=== PATIENT | male | born 1965 | race Caucasian/White ===

== ENCOUNTER → 2018-02-23 10:52 | Outpatient (CLI) | payer OTHER, SELFPAY ==
--- NOTE | 2018-02-23 10:54 | ECHOCS_ITS ---
Reason For Study: Murmur Procedure This was a 2D Doppler, Color Flow transthoracic echocardiogram. The exam was of poor technical quality due to body habitus. The study was technically difficult. Contrast injection was performed. Exam performed in department. Left Ventricle Normal LV size. Left ventricular systolic function is normal. The estimated ejection fraction is 55 %. Transmitral doppler flow suggestive of impaired relaxation of left ventricle. No regional wall motion abnormalities noted. Right Ventricle Normal RV size. Normal systolic function. Atria Normal left atrium. Normal right atrium. No doppler evidence for ASD. Mitral Valve There is mild mitral annular calcification. Normal mitral valve. Trivial mitral valve insufficiency. Tricuspid Valve The tricuspid valve is not well visualized. Trivial tricuspid valve insufficiency. Unable to estimate RV systolic pressure/pulmonary artery pressure due to technically difficult study. Aortic Valve Based upon the 2D echocardiographic images obtained there appear to be findings potentially c/w a bicuspid aortic valve with associated moderate focal thickening and mild aortic valve stenosis. Pulmonic Valve The pulmonic valve is not well visualized. Great Vessels Moderately dilated aortic root. Moderate to severely dilated ascending thoracic aorta. Pericardium/Pleural No pericardial effusion. Medication 22 gauge I.V. with prn adaptor inserted into right arm. Diluted definity 3ml given slow IV push to enhance endocardial definition. MMode/2D Measurements & Calculations LVIDd: 4.9 cm IVSd: 1.1 cm LVOT diam: 2.8 cm LVIDs: 3.0 cm LVPWd: 1.1 cm LVOT area: 6.1 cm2 FS: 38.0 % Ao root diam: 4.6 cm LAV(MOD-sp2): 46.4 ml ACS: 1.3 cm Time Measurements MV dec time: 0.31 sec Doppler Measurements & Calculations MV E max shawn: 78.6 cm/sec Lat Peak E' Shawn: 9.6 cm/sec Med Peak E' Shawn: 8.3 cm/sec MV A max shawn: 82.9 cm/sec E/E' lat: 8.2 E/E' med: 9.4 MV E/A: 0.95 MV V2 max: 94.4 cm/sec MV P1/2t max shawn: 75.1 cm/sec Ao V2 max: 279.6 cm/sec MV max P.6 mmHg MV P1/2t: 116.4 msec Ao max P.3 mmHg MV V2 mean: 48.9 cm/sec MV dec slope: 189.0 cm/sec2 Ao V2 mean: 190.5 cm/sec MV mean P.1 mmHg MVA(P1/2t): 1.9 cm2 Ao mean P.8 mmHg MV V2 VTI: 25.8 cm Ao V2 VTI: 61.7 cm MVA(VTI): 4.2 cm2 BEVERLY(I,D): 1.8 cm2 BEVERLY(V,D): 1.7 cm2 LV V1 max: 75.7 cm/sec SV(LVOT): 108.3 ml PA V2 max: 60.7 cm/sec LV V1 max P.3 mmHg LV V1 mean P.4 mmHg LV V1 mean: 54.0 cm/sec LV V1 VTI: 17.7 cm Interpretation Summary The study was technically difficult. Contrast injection was performed. Left ventricular systolic function is normal. The estimated ejection fraction is 55 %. There is mild mitral annular calcification. Trivial mitral valve insufficiency. Trivial tricuspid valve insufficiency. Based upon the 2D echocardiographic images obtained there appear to be findings potentially c/w a bicuspid aortic valve with associated moderate focal thickening and mild aortic valve stenosis. Moderately dilated aortic root. Moderate to severely dilated ascending thoracic aorta. Unable to estimate RV systolic pressure/pulmonary artery pressure due to technically difficult study. Transmitral doppler flow suggestive of impaired relaxation of left ventricle Ordering Physician: Roberto Horn Referring Physician: Roberto Horn Performed By: Gavin Akhtar RCS
== END ==
LOC: CVS 10:53
PROVIDERS: Family Provider Internal Medicine; PCP Internal Medicine; Visit Provider Internal Medicine Cardiovascular Disease
DX: I35.8 Other nonrheumatic aortic valve disorders (principal)
CPT/HCPCS: 93306; Q9957; A4216; C8929

== ENCOUNTER → 2018-02-25 07:51 | Outpatient (CLI) | payer OTHER, SELFPAY ==
[2018-02-25 07:55] LABS: Bacteria 0 SEEN /hpf (None Seen); Mucous, Urine 0 SEEN /hpf (<or=2+); Squamous Epithelial Cells - UA 0 SEEN /hpf (0-5); White Blood Cells 0 SEEN /hpf (0-5)
[2018-02-25 08:24] LABS: Color, Urine Yellow (Yellow); Glucose, Dipstick Normal (Normal); Ketone-Dipstick Negative (Negative); Leukocyte Esterase-Dipstick Negative /ul (Negative); Nitrite-Dipstick Negative (Negative); Occult Blood-Urine 25 /ul (Negative); Protein-Dipstick 15 mg/dl (Negative); Urine Bilirubin Dipstick Negative (Negative); Urine Clarity Clear (Clear); Urine Urobilinogen Normal (Normal)
[2018-02-25 08:28] LABS: Absolute Lymphocyte Count 2.71 X10^3/ul (0.83-4.51); Absolute Neutrophil Count 4.6 X10^3/uL (2.0-7.7); Basophil# 0.02 X10^3/uL; Basophil% 0.2 % (0-1); Eosinophil# 0.14 X10^3/uL; Eosinophils% 1.7 % (0-5); Hematocrit 47.5 % (40-54); Hemoglobin 16.2 g/dl (13.0-16.5); Lymphocyte # 2.71 X10^3/ul (4.0); Lymphocyte % 32.3 % (19-41); Mean Corp Hgb Conc 34.1 g/gl (32-36); Mean Corpuscular Hgb 29.8 pg (27.0-32.0); Mean Corpuscular Volume 87.5 fL (80-94); Mean Platelet Vol. 10.8 fl (6.2-12.0); Monocyte% 9.5 % (0-10); Neutrophil # 4.59 X10^3/uL (2.7-7.7); Neutrophil % 54.9 % (47-70); Platelet Count 198 K/mm3 (150-450); RBC Distribution Width CV 13.3 % (11.6-14.6); RBC Distribution Width SD 42.5 fl (35.1-43.9); Red Blood Count 5.43 M/mm3 (4.6-6.2); White Blood Count 8.4 K/mm3 (4.4-11.0)
[2018-02-25 08:35] LABS: POSITIVE COUNT NO; POSITIVE DIFFERENTIAL NO; POSITIVE MORPHOLOGY NO
[2018-02-25 08:45] LABS: Red Blood Cells-Urine 0-5 SEEN /hpf (0-5)
[2018-02-25 08:47] LABS: Microalbumin,Random Urine 21.4 mg/L (NO RANGE EST.); Microalbumin:Creatinine Ratio 9.3 mg/g CRE (<30 mg/g CRE)
[2018-02-25 08:59] LABS: AST(SGOT) 27 U/L (15-37); Alanine Aminotransfer ALT/SGPT 45 U/L (16-61); Albumin, Serum 3.5 g/dL (3.2-5.0); Alkaline Phosphatase 125 U/L (45-117); Anion Gap 6 (5-15); BUN 16 mg/dL (7-18); BUN/Creat Ratio 15.1 RATIO (10-20); Calcium,Total 8.4 mg/dL (8.5-10.1); Chloride 108 mmol/L (98-107); Cholesterol 141 mg/dL (200); Creatinine, Serum 1.06 mg/dL (0.70-1.30); EST Glomerular Filtration Rate 77 mL/min (>60); Est Glom Filt Rate - Afr Amer 94 mL/min (>60); Globulin 3.5 g/dL (2.2-4.2); Glucose 96 mg/dL (74-106); High Density Lipoprotein 50 mg/dL; PSA,Total - Annual Screen 1.17 ng/mL (0.00-4.00); Potassium 3.8 mmol/L (3.5-5.1); Sodium Level 141 mmol/L (136-145); Triglycerides 76 mg/dL; Very Low Density Lipoprotein 15 mg/dL (5-40)
[2018-02-27 12:06] LABS: CHOLESTEROL TOTAL 152 mg/dL (100-199); HDL-C 49 mg/dL (>39); HDL-P TOTAL 34.3 umol/L (>=30.5); SMALL LDL-P 120 nmol/L (<=527); TRIGLYCERIDES 80 mg/dL (0-149)
[2018-03-01 10:00] LABS: LDL-C 87 mg/dL (0-99); LDL-P 925 nmol/L (<1000); LP-IR SCORE ** 55 (<=45)
== END ==
PROVIDERS: Family Provider Internal Medicine; PCP Internal Medicine; Visit Provider Internal Medicine
DX: I10 Essential (primary) hypertension (principal); Z12.5 Encounter for screening for malignant neoplasm of prostate; Z13.220 Encounter for screening for lipoid disorders
CPT/HCPCS: 36415; 80053; 80061; 81001; 82043; 82570; 83704; 84153; 85025; G0103

== ENCOUNTER → 2018-03-31 13:26 | Outpatient (CLI) | payer OTHER, SELFPAY ==
--- NOTE | 2018-03-31 13:55 | CT_ITS ---
STUDY: CTA CHEST REASON FOR EXAM: Male, 53 years old. He reported for dilation RADIATION DOSAGE (If Supplied By Facility): CTDIvol = ( 21.66 ) mGy, DLP = ( 815.72 ) mGycm TECHNIQUE: The examination was performed with the intravenous administration of 100 ml of Isovue 370 contrast material. Post-processing of the angiographic images was performed, with multiplanar reformation and 3D reconstruction. Individualized dose optimization techniques were used for this CT. COMPARISON: None. FINDINGS: There is a low-density nodule of the left thyroid lobe measuring 2.1 cm. Normal enhancement of the main pulmonary artery and right and left pulmonary arteries. Normal enhancement of the bilateral peripheral pulmonary arteries. There is no demonstrated pulmonary embolism. There is aneurysmal enlargement of the ascending thoracic aorta with true axial diameter (measured on oblique reconstruction images) measuring 5.8 x 5.8 cm. There is mild dilation at the origin of the right brachiocephalic artery measuring 2.3 x 1.7 cm (AP by transverse). The left common carotid artery and left subclavian artery are normal in caliber. There is no demonstrated aortic dissection. The heart size is normal. There are calcifications of the aortic valve. There are visualized mediastinal lymph nodes, which are within normal size limits, and with normal morphology. Normal hilar regions. Normal visualized trachea and bronchi. The lungs are well expanded. Scattered fibrotic bands involving the right middle lobe, lingula right more than left lower lobes. No pulmonary nodule or mass identified. Normal pleura. Normal chest wall structures. Normal osseous structures. Capsular scarring of the right posterolateral hepatic lobe. There is a low-density lesion with peripheral nodular enhancement, likely representing hemangioma. CT/CTA Chest W/WO Contrast IMPRESSION: 1. Ascending thoracic aortic aneurysm measuring up to 5.8 cm in axial diameter. Mild ectasia of the right brachiocephalic artery origin. No thoracic aortic dissection. 2. Aortic valve calcifications. 3. Scattered parenchymal fibrotic bands. 4. Probable hemangioma of the liver. Electronically Signed: Scot Harvey MD at 19:40 EDT , Service support ,
== END ==
PROVIDERS: Family Provider Internal Medicine; PCP Internal Medicine; Visit Provider Internal Medicine Cardiovascular Disease
DX: I71.2 Thoracic aortic aneurysm, without rupture (principal)
CPT/HCPCS: 71275; Q9967

== ENCOUNTER → 2018-04-12 11:52 | Outpatient (CLI) | payer OTHER, SELFPAY ==
[2018-04-12 12:59] LABS: Hematocrit 46.7 % (40-54); Mean Corp Hgb Conc 34.3 g/gl (32-36); Mean Corpuscular Hgb 30.2 pg (27.0-32.0); Mean Corpuscular Volume 88.3 fL (80-94); Mean Platelet Vol. 10.7 fl (6.2-12.0); Platelet Count 199 K/mm3 (150-450); RBC Distribution Width CV 13.4 % (11.6-14.6); RBC Distribution Width SD 43.7 fl (35.1-43.9); Red Blood Count 5.29 M/mm3 (4.6-6.2); White Blood Count 7.9 K/mm3 (4.4-11.0)
[2018-04-12 13:04] LABS: Scan Indicated on CBC? Y/N NO
[2018-04-12 13:24] LABS: BUN 17 mg/dL (7-18); BUN/Creat Ratio 17.4 RATIO (10-20); Calcium,Total 8.8 mg/dL (8.5-10.1); Chloride 109 mmol/L (98-107); Creatinine, Serum 0.98 mg/dL (0.70-1.30); EST Glomerular Filtration Rate 85 mL/min (>60); Est Glom Filt Rate - Afr Amer 103 mL/min (>60); Glucose 97 mg/dL (74-106); Potassium 4.2 mmol/L (3.5-5.1); Sodium Level 141 mmol/L (136-145)
[2018-04-12 13:25] LABS: Anion Gap 6 (5-15)
[2018-04-12 14:07] LABS: International Normalized Ratio 1.2; Partial Thromboplast Time 29.1 Seconds (24.1-36.2); Prothrombin Time (Protime)PT. 15.6 SECONDS (11.7-14.9)
== END ==
PROVIDERS: Family Provider Internal Medicine; PCP Internal Medicine; Visit Provider Internal Medicine Cardiovascular Disease
DX: I71.2 Thoracic aortic aneurysm, without rupture (principal); R01.1 Cardiac murmur, unspecified; I10 Essential (primary) hypertension
CPT/HCPCS: 36415; 80048; 85027; 85610; 85730

== ENCOUNTER 2018-04-13 08:10 | Day surgery (SDC) | payer OTHER, SELFPAY ==
[2018-04-12 11:12] VITALS: BMI 34.5
== END 2018-04-13 14:45 | disposition home or self-care (01) ==
LOC: CLSP 08:10
PROVIDERS: Family Provider Internal Medicine; PCP Internal Medicine; Visit Provider Internal Medicine Cardiovascular Disease
DX: I71.2 Thoracic aortic aneurysm, without rupture (principal); Q23.1 Congenital insufficiency of aortic valve; I10 Essential (primary) hypertension; K44.9 Diaphragmatic hernia without obstruction or gangrene; F17.200 Nicotine dependence, unspecified, uncomplicated; Z79.82 Long term (current) use of aspirin; Z79.899 Other long term (current) drug therapy
CPT/HCPCS: 93454; 93567; 99152; 99153; J7040; C1769; C1894; Q9967

== ENCOUNTER → 2018-06-14 13:29 | Outpatient (CLI) | payer OTHER, SELFPAY ==
[2018-06-14 14:09] LABS: International Normalized Ratio 1.5; Prothrombin Time (Protime)PT. 17.8 SECONDS (11.7-14.9)
== END ==
PROVIDERS: Family Provider Internal Medicine; PCP Internal Medicine; Referring Provider Internal Medicine Cardiovascular Disease; Visit Provider Internal Medicine Cardiovascular Disease
DX: I48.91 Unspecified atrial fibrillation (principal); I97.89 Other postprocedural complications and disorders of the circulatory system, not elsewhere classified; Z79.01 Long term (current) use of anticoagulants
CPT/HCPCS: 36415; 85610

== ENCOUNTER → 2018-06-21 12:11 | Outpatient (CLI) | payer OTHER, SELFPAY ==
[2018-06-21 13:09] LABS: International Normalized Ratio 1.5; Prothrombin Time (Protime)PT. 17.8 SECONDS (11.7-14.9)
== END ==
PROVIDERS: Family Provider Internal Medicine; PCP Internal Medicine; Referring Provider Internal Medicine Cardiovascular Disease; Visit Provider Internal Medicine Cardiovascular Disease
DX: I48.91 Unspecified atrial fibrillation (principal); Q23.1 Congenital insufficiency of aortic valve; R01.1 Cardiac murmur, unspecified; I71.2 Thoracic aortic aneurysm, without rupture; I10 Essential (primary) hypertension; I97.89 Other postprocedural complications and disorders of the circulatory system, not elsewhere classified; Z79.01 Long term (current) use of anticoagulants
CPT/HCPCS: 36415; 85610

== ENCOUNTER → 2018-06-28 13:03 | Outpatient (CLI) | payer OTHER, SELFPAY ==
--- NOTE | 2018-06-28 13:18 | RAD_ITS ---
STUDY: X-RAY CHEST REASON FOR EXAM: Male, 53 years old. Pleural effusion. TECHNIQUE: Frontal and lateral views of the chest. COMPARISON: CT scan 03/31/2018. FINDINGS: The lungs are clear and expanded. There is no demonstrated pleural abnormality. Sternal cerclage wires are present from a prior sternotomy. A prosthetic aortic valve is seen. Normal mediastinum and liya. Normal visualized pulmonary arteries. Normal visualized aortic arch and descending thoracic aorta. Normal visualized thoracic spine. Normal visualized ribs, clavicles, and shoulders. There is no demonstrated abnormality of the visualized soft tissue structures of the upper abdomen. RAD/Chest PA and Lateral IMPRESSION: No acute chest disease. Electronically Signed: Wisam Murrell MD at 23:56 EST , Service support ,
[2018-06-28 13:45] LABS: International Normalized Ratio 1.4; Prothrombin Time (Protime)PT. 16.9 SECONDS (11.7-14.9)
== END ==
PROVIDERS: Family Provider Internal Medicine; PCP Internal Medicine; Referring Provider Internal Medicine Cardiovascular Disease; Visit Provider Internal Medicine Cardiovascular Disease
DX: J90 Pleural effusion, not elsewhere classified (principal); Q23.1 Congenital insufficiency of aortic valve; I10 Essential (primary) hypertension; I48.91 Unspecified atrial fibrillation; I71.2 Thoracic aortic aneurysm, without rupture; R01.1 Cardiac murmur, unspecified; I97.89 Other postprocedural complications and disorders of the circulatory system, not elsewhere classified; Z79.01 Long term (current) use of anticoagulants
CPT/HCPCS: 36415; 71046; 85610

== ENCOUNTER → 2018-07-06 11:43 | Outpatient (CLI) | payer OTHER, SELFPAY ==
--- NOTE | 2018-07-06 11:49 | ECHOCS_ITS ---
Reason For Study: PERICARDIAL EFFUSION Procedure This was a 2D Doppler, Color Flow transthoracic echocardiogram. The study was technically difficult. Contrast injection was performed. Exam performed in department. Left Ventricle Normal LV size. Left ventricular systolic function is normal. The estimated ejection fraction is 60 %. Transmitral doppler flow suggestive of impaired relaxation of left ventricle. No regional wall motion abnormalities noted. Right Ventricle Normal RV size. Normal systolic function. Atria Normal left atrium. Normal right atrium. No doppler evidence for ASD. Mitral Valve There is mild mitral annular calcification. Normal mitral valve. Trivial mitral valve insufficiency. Tricuspid Valve Normal tricuspid valve. Trivial tricuspid valve insufficiency. Unable to estimate RV systolic pressure/pulmonary artery pressure due to technically difficult study. Aortic Valve Stable appearing bioprosthetic aortic valve apparatus. Pulmonic Valve The pulmonic valve is not well visualized. Trivial pulmonic valve insufficiency. Great Vessels Aortic root repair. Pericardium/Pleural Small to moderate pericardial effusion. There are no echocardiographic indications of cardiac tamponade. Medication 22 gauge I.V. with prn adaptor inserted into right arm. Diluted definity 4ml given slow IV push to enhance endocardial definition. MMode/2D Measurements & Calculations RVDd: 4.1 cm LVOT diam: 2.3 cm Ao root diam: 3.7 cm LVOT area: 4.3 cm2 LAV(MOD-bp): 52.2 ml LVAd ap4: 37.9 cm2 SV(MOD-sp4): 70.4 ml LAV(MOD-bp) Indexed: 21.1 ml/m2 EDV(MOD-sp4): 131.4 ml LAV(MOD-sp2): 49.9 ml EDV(sp4-el): 139.9 ml LAV(MOD-sp4): 51.6 ml LVAs ap4: 23.2 cm2 ESV(MOD-sp4): 61.0 ml ESV(sp4-el): 63.5 ml EF(MOD-sp4): 53.6 % EF(sp4-el): 54.6 % SV(sp4-el): 76.4 ml LA A4 area: 19.7 cm2 RA A4 area: 16.3 cm2 Time Measurements MV dec time: 0.24 sec Doppler Measurements & Calculations MV E max shawn: 77.5 cm/sec Lat Peak E' Shawn: 9.8 cm/sec Med Peak E' Shawn: 5.5 cm/sec MV A max shawn: 76.7 cm/sec E/E' lat: 7.9 E/E' med: 14.1 MV E/A: 1.0 Ao V2 max: 233.5 cm/sec LV V1 max: 115.9 cm/sec SV(LVOT): 103.6 ml Ao max P.8 mmHg LV V1 max P.4 mmHg Ao V2 mean: 170.0 cm/sec LV V1 mean P.9 mmHg Ao mean P.6 mmHg LV V1 mean: 80.3 cm/sec Ao V2 VTI: 44.6 cm LV V1 VTI: 24.3 cm BEVERLY(I,D): 2.3 cm2 BEVERLY(V,D): 2.1 cm2 PA V2 max: 95.2 cm/sec Interpretation Summary The study was technically difficult. Contrast injection was performed. Left ventricular systolic function is normal. The estimated ejection fraction is 60 %. There is mild mitral annular calcification. Trivial mitral valve insufficiency. Trivial tricuspid valve insufficiency. Stable appearing bioprosthetic aortic valve apparatus. Trivial pulmonic valve insufficiency. Aortic root repair. Small to moderate pericardial effusion. There are no echocardiographic indications of cardiac tamponade. Unable to estimate RV systolic pressure/pulmonary artery pressure due to technically difficult study. Transmitral doppler flow suggestive of impaired relaxation of left ventricle Ordering Physician: Roberto Horn Referring Physician: LEANDRA CHAUHAN Performed By: Carmela Pierce, RDCS, RVT
--- NOTE | 2018-07-06 14:41 | STRESSREP ---
Stress Test Report Date: 07/06/2018 Procedure: Exercise tolerance test Indications: Status post AVR, status post aortic root repair, postoperative atrial fibrillation, pre-cardiac rehabilitation evaluation Consent: Per the patient Procedure: The patient exercised on a Panchito protocol for 5 minutes completing Stage I and 2 minutes of Stage II achieving a peak heart rate of 127 bpm (76 % predicted maximal heart rate) with a peak blood pressure 140/80 mmHg and a peak MET capacity of approximately 7 MET's. The baseline ECG demonstrated normal sinus rhythm. The peak exercise ECG demonstrated somatic/motion artifact with no obvious ECG changes at the heart rate achieved. There were occasional PVCs during recovery. The functional capacity was considered average. The patient had no complaint of chest discomfort during exercise or recovery. The examination was discontinued secondary to dyspnea and fatigue. Impression: 1. Technically inadequate (percent predicted maximal heart rate less than 85%) exercise tolerance test 2. Peak exercise ECG with with somatic/motion artifact with no obvious ECG changes at the heart rate achieved 3. There were occasional PVCs during recovery This note was generated with [employer] software. It may contain incorrect words, spelling, and punctuation that were not noted in checking the note before signing.
--- NOTE | 2018-07-06 14:44 | STRESSREP_ITS ---
Stress Test Report Date: 07/06/2018 Procedure: Exercise tolerance test Indications: Status post AVR, status post aortic root repair, postoperative atrial fibrillation, pre-cardiac rehabilitation evaluation Consent: Per the patient Procedure: The patient exercised on a Panchito protocol for 5 minutes completing Stage I and 2 minutes of Stage II achieving a peak heart rate of 127 bpm (76 % predicted maximal heart rate) with a peak blood pressure 140/80 mmHg and a peak MET capacity of approximately 7 MET's. The baseline ECG demonstrated normal sinus rhythm. The peak exercise ECG demonstrated somatic/motion artifact with no obvious ECG changes at the heart rate achieved. There were occasional PVCs during recovery. The functional capacity was considered average. The patient had no complaint of chest discomfort during exercise or recovery. The examination was discontinued secondary to dyspnea and fatigue. Impression: 1. Technically inadequate (percent predicted maximal heart rate less than 85%) exercise tolerance test 2. Peak exercise ECG with with somatic/motion artifact with no obvious ECG changes at the heart rate achieved 3. There were occasional PVCs during recovery This note was generated with babbelation software. It may contain incorrect words, spelling, and punctuation that were not noted in checking the note before signing.
== END ==
PROVIDERS: Family Provider Internal Medicine; PCP Internal Medicine; Referring Provider Internal Medicine Cardiovascular Disease; Visit Provider Internal Medicine Cardiovascular Disease
DX: J90 Pleural effusion, not elsewhere classified (principal); I31.3 Pericardial effusion (noninflammatory); Z95.2 Presence of prosthetic heart valve
CPT/HCPCS: 93017; 93306; Q9957; A4216; C8929

== ENCOUNTER 2018-07-19 08:25 | Outpatient (RCR) | payer OTHER, SELFPAY ==
[2018-07-05 17:18] LABS: International Normalized Ratio 1.3; Prothrombin Time (Protime)PT. 16.2 SECONDS (11.7-14.9)
[2018-07-12 09:03] LABS: International Normalized Ratio 1.4
[2018-07-19 09:28] LABS: International Normalized Ratio 1.6; Prothrombin Time (Protime)PT. 18.9 SECONDS (11.7-14.9)
== END 2018-07-23 07:59 | disposition home or self-care (01) ==
LOC: LAB 08:25
PROVIDERS: Family Provider Internal Medicine; PCP Internal Medicine; Referring Provider Internal Medicine Cardiovascular Disease; Visit Provider Internal Medicine Cardiovascular Disease
DX: I48.91 Unspecified atrial fibrillation (principal); I97.89 Other postprocedural complications and disorders of the circulatory system, not elsewhere classified; Z79.01 Long term (current) use of anticoagulants; Z95.3 Presence of xenogenic heart valve
CPT/HCPCS: 36415; 85610

== ENCOUNTER → 2018-07-30 14:59 | Outpatient (CLI) | payer OTHER, SELFPAY ==
--- NOTE | 2018-07-30 15:01 | ECHOL_ITS ---
Reason For Study: Pericardial Effusion Procedure This was a limited 2D transthoracic echocardiogram. The study was technically difficult. Limited views were obtained. Exam performed in department. Left Ventricle Left ventricular systolic function is normal. The estimated ejection fraction is 60 %. Right Ventricle Normal systolic function. Pericardium/Pleural No pericardial effusion. Interpretation Summary The study was technically difficult. Limited views were obtained. Left ventricular systolic function is normal. The estimated ejection fraction is 60 %. No pericardial effusion. Ordering Physician: Roberto Horn Referring Physician: Roberto Horn Performed By: Gavin Akhtar RCS
== END ==
PROVIDERS: Family Provider Internal Medicine; PCP Internal Medicine; Referring Provider Internal Medicine Cardiovascular Disease; Visit Provider Internal Medicine Cardiovascular Disease
DX: I31.3 Pericardial effusion (noninflammatory) (principal)
CPT/HCPCS: 93308

== ENCOUNTER 2018-08-23 07:53 | Outpatient (RCR) | payer OTHER, SELFPAY ==
[2018-07-26 09:25] LABS: International Normalized Ratio 1.8; Prothrombin Time (Protime)PT. 20.7 SECONDS (11.7-14.9)
[2018-08-02 10:42] LABS: International Normalized Ratio 1.6; Prothrombin Time (Protime)PT. 19.4 SECONDS (11.7-14.9)
[2018-08-09 09:09] LABS: International Normalized Ratio 1.8; Prothrombin Time (Protime)PT. 21.1 SECONDS (11.7-14.9)
[2018-08-23 10:35] LABS: International Normalized Ratio 2.1; Prothrombin Time (Protime)PT. 23.2 SECONDS (11.7-14.9)
== END 2018-08-23 08:53 | disposition home or self-care (01) ==
LOC: LAB 07:53
PROVIDERS: Family Provider Internal Medicine; PCP Internal Medicine; Referring Provider Internal Medicine Cardiovascular Disease; Visit Provider Internal Medicine Cardiovascular Disease
DX: I48.91 Unspecified atrial fibrillation (principal); I97.89 Other postprocedural complications and disorders of the circulatory system, not elsewhere classified; Z79.01 Long term (current) use of anticoagulants; Z95.3 Presence of xenogenic heart valve
CPT/HCPCS: 36415; 85610

== ENCOUNTER 2018-09-20 08:17 | Outpatient (RCR) | payer OTHER, SELFPAY ==
[2018-06-24 14:37] VITALS: BMI 32.8
[2018-09-20 09:44] LABS: International Normalized Ratio 2.1; Prothrombin Time (Protime)PT. 23.8 SECONDS (11.7-14.9)
== END 2018-09-20 09:18 | disposition home or self-care (01) ==
LOC: LAB 08:17
PROVIDERS: Family Provider Internal Medicine; PCP Internal Medicine; Referring Provider Internal Medicine Cardiovascular Disease; Visit Provider Internal Medicine Cardiovascular Disease
DX: I48.91 Unspecified atrial fibrillation (principal); I97.89 Other postprocedural complications and disorders of the circulatory system, not elsewhere classified; Z79.01 Long term (current) use of anticoagulants; Z95.3 Presence of xenogenic heart valve
CPT/HCPCS: 36415; 85610

== ENCOUNTER → 2020-08-28 10:54 | Outpatient (CLI) | payer OTHER, SELFPAY ==
[2020-03-16 08:54] VITALS: BMI 33.7
--- NOTE | 2020-08-28 10:55 | ECHOD_ITS ---
Reason For Study: VALVE REPL Procedure This was a 2D Doppler, Color Flow transthoracic echocardiogram. The exam was of adequate technical quality. Exam performed in department. Left Ventricle Normal LV size. Left ventricular systolic function is normal. The estimated ejection fraction is 60 %. No evidence for diastolic dysfunction. No regional wall motion abnormalities noted. Right Ventricle Normal RV size. Normal systolic function. Atria The left atrium is mildly enlarged. Normal right atrium. No doppler evidence for ASD. Mitral Valve There is mild mitral annular calcification. Extension of the mitral annular calcification onto the base of the posterior mitral valve leaflet. Trivial mitral valve insufficiency. Tricuspid Valve Normal tricuspid valve. Trivial tricuspid valve insufficiency. Aortic Valve Mild to moderate aortic stenosis. Stable appearing bioprosthetic aortic valve apparatus. Pulmonic Valve The pulmonic valve is not well visualized. Great Vessels Normal sized aortic root. Pericardium/Pleural No pericardial effusion. MMode/2D Measurements & Calculations LVIDd: 4.5 cm IVSd: 1.1 cm LVOT diam: 2.0 cm LVIDs: 3.2 cm LVPWd: 1.1 cm LVOT area: 3.2 cm2 RVDd: 3.8 cm FS: 28.8 % Ao root diam: 3.2 cm LAV(MOD-bp): 51.8 ml LA A4 area: 19.4 cm2 LAV(MOD-bp) Indexed: 21.0 ml/m2 LAV(MOD-sp2): 43.6 ml LAV(MOD-sp4): 48.0 ml LA dimension(2D): 4.2 cm RA A4 area: 15.1 cm2 Time Measurements MV dec time: 0.29 sec Doppler Measurements & Calculations MV E max shawn: 82.4 cm/sec Lat Peak E' Shawn: 10.1 cm/sec Med Peak E' Shawn: 8.0 cm/sec MV A max shawn: 79.3 cm/sec E/E' lat: 8.2 E/E' med: 10.3 MV E/A: 1.0 Ao V2 max: 298.3 cm/sec LV V1 max: 111.2 cm/sec SV(LVOT): 82.5 ml Ao max P.6 mmHg LV V1 max P.0 mmHg Ao V2 mean: 218.9 cm/sec LV V1 mean P.0 mmHg Ao mean P.8 mmHg LV V1 mean: 81.6 cm/sec Ao V2 VTI: 68.4 cm LV V1 VTI: 26.1 cm BEVERLY(I,D): 1.2 cm2 BEVERLY(V,D): 1.2 cm2 PA V2 max: 85.5 cm/sec Interpretation Summary Left ventricular systolic function is normal. The estimated ejection fraction is 60 %. The left atrium is mildly enlarged. There is mild mitral annular calcification. Extension of the mitral annular calcification onto the base of the posterior mitral valve leaflet. Trivial mitral valve insufficiency. Trivial tricuspid valve insufficiency. Stable appearing bioprosthetic aortic valve apparatus. Mild to moderate aortic stenosis. No evidence for diastolic dysfunction. Ordering Physician: Roberto Horn Referring Physician: LEANDRA CHAUHAN Performed By: Carmela Pierce, MILLI, RVT
== END ==
PROVIDERS: PCP Internal Medicine; Referring Provider Internal Medicine Cardiovascular Disease; Visit Provider Internal Medicine Cardiovascular Disease
DX: I10 Essential (primary) hypertension (principal); I48.91 Unspecified atrial fibrillation; I97.89 Other postprocedural complications and disorders of the circulatory system, not elsewhere classified; Z86.79 Personal history of other diseases of the circulatory system; Z95.3 Presence of xenogenic heart valve; Z98.890 Other specified postprocedural states
CPT/HCPCS: 93306

== ENCOUNTER → 2025-06-14 | Outpatient (CLI) | payer OTHER, SELFPAY ==
[2025-06-14 09:23] LABS: Hematocrit 48.4 % (40-54); Hemoglobin 15.8 g/dL (13.0-16.5); Immature Granulocytes Count 0.050 X10^3/uL (0.0-0.0); Mean Corp Hgb Conc 32.6 g/dL (32-36); Mean Corpuscular Volume 89.5 fL (80-94); Mean Platelet Vol. 10.4 fl (6.2-12.0); NRBC Flagged by Analyzer 0 % (0-5); Platelet Count 179 K/mm3 (150-450); RBC Distribution Width CV 13.5 % (11.6-14.6); RBC Distribution Width SD 43.8 fl (35.1-43.9); Red Blood Count 5.41 M/mm3 (4.6-6.2); White Blood Count 8.3 K/mm3 (4.4-11.0)
[2025-06-14 10:24] LABS: AST(SGOT) 32 U/L (<=37); Alanine Aminotransfer ALT/SGPT 46 U/L (<=46); Albumin, Serum 3.9 g/dL (3.4-4.8); Alkaline Phosphatase 141 U/L (40-129); Anion Gap 10 (5-15); BUN 16 mg/dL (4-19); BUN/Creat Ratio 16.1 RATIO (10-20); Calcium,Total 9.0 mg/dL (7.6-11.0); Carbon Dioxide 24.7 mmol/L (21.0-32.0); Chloride 105 mmol/L (98-108); Globulin 2.6 g/dL (2.2-4.2); Glucose 116 mg/dL (70-99); Potassium 4.6 mmol/L (3.3-5.1); Pro- Brain NATRIURETIC PEPTIDE 127 pg/mL (<=900)
== END | disposition home or self-care (01) ==
LOC: LAB 08:54
PROVIDERS: PCP Internal Medicine; Referring Provider Nurse Practitioner Family; Visit Provider Nurse Practitioner Family
DX: R06.09 Other forms of dyspnea (principal); I10 Essential (primary) hypertension
CPT/HCPCS: 36415; 80053; 83880; 85025

== ENCOUNTER 2025-06-27 10:33 | Emergency (ER) | payer OTHER, SELFPAY ==
[2025-06-27 10:38] VITALS: BP 120/94; PULSE 160; RESP 22; TEMP 36.6; O2SAT 96; BMI 36.2
--- NOTE | 2025-06-27 10:53 | EKG12_ITS ---
Test Reason : AFIB
--- NOTE | 2025-06-27 10:54 | RAD_ITS ---
PROCEDURE: RAD/Chest PA and Lateral
--- NOTE | 2025-06-27 10:56 | ED.VIS.CHEST ---
HPI History of Present Illness Chief Complaint: Palpitations Informant: patient Narrative Narrative: Patient is a 60-year-old male with history of aortic valve replacement bioprosthetic valve (2018) as well as repair of ascending aortic aneurysm. He did have postoperative atrial fibrillation but is managed on metoprolol alone. He is presenting today with palpitations and arrhythmia for 7.4-second run of V. tach versus A-fib with aberrancy at a rate of 194. He tells me that over the past 2 weeks he is active and feeling very good since following up with cardiology (on 06/14/2025). At that time he did have an outpatient echocardiogram ordered but is not sure when the date is. He denies any recent dyspnea on exertion states he was carrying 5 gallon barrels yesterday and feeling well. Notes that he has been compliant with his metoprolol. He denies any chest pain. Denies any recent dyspnea on exertion or cough. Denies any leg swelling. Denies any weight change. No other complaints at this time. [facility] Medical History Essential hypertension Nonrheumatic aortic (valve) stenosis Pericardial effusion roasterman (current) use of anticoagulants Postoperative atrial fibrillation Bicuspid aortic valve Cardiac murmur Ascending aortic aneurysm Heartburn Hiatal hernia Home Medications ?Medication ?Instructions ?Recorded ?Last Taken ?Type aspirin 81 mg tablet,delayed 81 mg PO QDAY HEART 10/13/18 06/26/25 History release vitamin B complex (B 1 tab PO DAILY SUPPLEMENT 04/18/19 06/26/25 History Complex-Vitamin B12 tablet) apixaban 5 mg tablet (Eliquis) 5 mg PO BID #60 tabs 06/27/25 Unknown Rx ascorbic acid (vitamin C) 1,000 mg 1 g PO DAILY SUPPLEMENT 06/27/25 06/26/25 History capsule metoprolol succinate 100 mg 50 mg PO DAILY HEART 06/27/25 06/26/25 History tablet,extended release 24 hr metoprolol succinate 50 mg 50 mg PO BID #28 tabs 06/27/25 Unknown Rx tablet,extended release 24 hr omeprazole 20 mg capsule,delayed 20 mg PO DAILY GERD 06/27/25 06/26/25 History release Allergy/AdvReac Type Severity Reaction Status Date / Time No Known Allergies Allergy Verified 06/27/25 10:38 Family History Father Hypertension CAD (coronary artery disease) Hx of CABG Mother Diabetes Hypertension CVA (cerebral vascular accident) Brother Heart disease Myocardial infarction, Onset Age: 60 Sister Hypertension Surgical History History of aortic valve replacement with bioprosthetic valve (~05/31/18) S/P ascending aortic aneurysm repair (~05/31/18) S/P aortic valve replacement with bioprosthetic valve (~05/31/18) Social History Smoking Status: Current every day smoker tobacco type: cigarettes quit status: considering quitting alcohol intake: current alcohol intake frequency: a few times a week details: occasional substance use type: does not use caffeine: Yes Type: coffee Number of servings: 1 ROS ROS ED Constitutional Constitutional ED: Denies chills or fever(s) Cardiovascular Cardiovascular: Reports palpitations; Denies chest pain Respiratory/Chest Respiratory/Chest: Denies cough, dyspnea or dyspnea on exertion Gastrointestinal Gastrointestinal: Denies abdominal pain, nausea or vomiting Musculoskeletal Musculoskeletal: Denies arthralgias or myalgias Integumentary Denies rash Neurologic Neurologic: Denies weakness Hematologic/Lymphatic Hematologic/Lymphatic: Denies easy bleeding or easy bruising EXAM Physical Exam Const Vital Signs: 06/27/25 10:38 06/27/25 11:09 06/27/25 11:42 Temperature 97.8 F Temperature Source Oral Pulse Rate 160 H 81 67 Respiratory Rate 22 H 18 12 Blood Pressure 120/94 H 136/101 H 123/94 H Blood Pressure Mean 102 112 103 Pulse Ox 96 96 98 Oxygen Delivery Method Room Air Room Air Room Air 06/27/25 12:27 06/27/25 14:31 Temperature 97.9 F 98.7 F Temperature Source Oral Pulse Rate 88 64 Respiratory Rate 19 H 18 Blood Pressure 104/81 H 135/78 H Blood Pressure Mean 88 97 Pulse Ox 96 99 Oxygen Delivery Method Room Air Positive well nourished and well developed General Appearance ED: well developed and NAD HEENT Reports moist mucous membranes Eyes PERRL Neck supple and no JVD Chest Wall inspection of chest normal and palpation of chest normal Resp normal respiratory effort and clear to auscultation bilaterally Cardio no murmurs Cardio Narrative: 2+ radial DP pulses present Rate: tachycardic Rhythm: abnormal rhythm irregularly irregular GI normal to inspection, nondistended, normoactive bowel sounds, soft to palpation and non-tender Extremity normal to inspection General Extremety ED: Negative for edema General Extremity: Negative for edema Neuro Sensorium / Orientation: awake and alert Motor Exam: Negative for general weakness Psych mental status grossly normal Skin no rashes or lesions noted and no wounds MDM MDM MDM Narrative Medical decision making narrative: Patient has palpitations. Outpatient Holter monitor/event monitor was concerning for runs of V. tach as well as A-fib with a Gold C. Upon arrival patient's relatively asymptomatic. He does appear to be in atrial fibrillation with RVR with runs of aberrancy versus V. tach (suspect V. tach is noted in all leads). Workup is initiated is hemodynamically stable. Does not require cardioversion emergently at this time. Patient reevaluated at approximately 11:20 AM. He is now in normal sinus rhythm. Will be given oral metoprolol instead of IV metoprolol as he is converted to normal sinus rhythm. Will obtain repeat EKG. EKG now shows normal sinus rhythm. Workup largely normal including CBC, delta high-sensitivity troponin, magnesium and TSH. Case discussed with cardiology, Dr. Bradshaw. He did review the patient's EKGs which were said to be a backline. He agrees that this likely was aberrancy and not V. tach He recommends starting the patient on Eliquis because he did not appear to be in atrial fibrillation and is a high risk of stroke. In addition he recommends MV and then increase his metoprolol to twice a day and stopping the aspirin. Stresses the importance of getting his outpatient echocardiogram and then following up in the office after that. Patient and his are agreeable with this. His thinks that he is actually receiving half dose of the metoprolol (25 mg) once a day instead of 50 mg daily. Discussed about the case that he should take 25 mg twice a day however he is receiving 50 mg once a day to increase that to twice daily dosing. She verbalizes understanding of this. Prescription sent to our retail pharmacy as they said they do have Eliquis coupon cards. Patient remains hemodynamically stable and asymptomatic in the emergency room. Is comfortable with this plan of care. Discharged home in stable condition. Is given return precautions. Lab Data Attestation: I reviewed the patient's lab results. Labs: Laboratory Results - last 24 hr 06/27/25 06/27/25 10:44 12:50 WBC 10.4 RBC 5.70 Hgb 17.3 H Hct 51.0 MCV 89.5 MCH 30.4 MCHC 33.9 RDW Std Deviation 43.8 RDW Coeff of Julio 13.4 Plt Count 210 MPV 10.7 Immature Gran % (Auto) 0.900 Neut % (Auto) 62.1 Lymph % (Auto) 27.0 [place] % (Auto) 8.1 Eos % (Auto) 1.4 Baso % (Auto) 0.5 Absolute Neuts (auto) 6.5 Absolute Lymphs (auto) 2.82 Nucleated RBC % 0 PT 15.8 H INR 1.2 APTT 24.6 Sodium 140 Potassium 3.8 Chloride 105 Carbon Dioxide 24.6 Anion Gap 10 BUN 19 Creatinine 0.96 Estim Creat Clear Calc 121.32 Est GFR (MDRD) Non-Af 90 BUN/Creatinine Ratio 20.0 Glucose 156 H Calcium 9.7 Magnesium 2.2 Troponin T High Sens 10 Troponin T Hi Sens 2 Hr 10 TSH 1.190 Radiography Chest X-Ray - ED: 2 View, Read by ED Physician, Read by Radiologist and No Acute Disease Diagnostic Testing: Clinical Impression(s) from Imaging Studies Chest X-Ray 06/27/25 10:54 IMPRESSION: NO ACUTE FINDINGS. Reading Location: [facility] Rhythm Strip Rhythm Strip: A-fib Rate: 156 Ectopy: PVC(s) EKG Initial EKG: Attestation: I personally reviewed and interpreted this EKG as follows: Interpretation: Atrial Fibrillation Comments: Atrial fibrillation with RVR rate of 156 bpm Intermittent runs of abbarency are present. Normal axis Nonspecific ST segment changes, likely rate related Prior EKG tracings: available for review Prior: Changed Follow-up EKG: Attestation: I personally reviewed and interpreted this EKG as follows: Interpretation: Sinus Rhythm Comments: Normal sinus rhythm at a rate of 77 bpm Normal axis Normal intervals Normal ST segments Prior: Changed Management Discussion w/another healthcare provider: [employer] Discharge Plan Triage Chief Complaint: Palpitations ED Provider: Viviana Enriquez Dx/Rx/DC Orders Clinical Impression: Atrial fibrillation with rapid ventricular response Instructions: ED AFIB Prescriptions: New Eliquis 5 mg tablet 5 mg PO BID Qty: 60 0RF metoprolol succinate 50 mg tablet extended release 24 hr 50 mg PO BID Qty: 28 0RF No Action vitamin B complex [B Complex-Vitamin B12] Tablet 1 tab PO DAILY metoprolol succinate 100 mg tablet extended release 24 hr 50 mg PO DAILY ascorbic acid (vitamin C) 1,000 mg capsule 1 g PO DAILY omeprazole 20 mg capsule,delayed release(DR/EC) 20 mg PO DAILY aspirin 81 mg tablet,delayed release (DR/EC) 81 mg PO QDAY Primary Care Provider: Gia Weeks Referrals: Gia Weeks DO [Primary Care Provider, Internal Medicine] Activity Restrictions/Additional Instructions: Your workup was consistent with atrial fibrillation. While in the ER he went back into normal sinus rhythm. Per cardiology stop taking 81 mg aspirin. Start taking Eliquis (5 mg twice a day). In addition double up on your metoprolol and take it twice a day instead of once a day. Please make sure you follow-up for your echocardiogram this Thursday the seventh at 8 AM. Follow-up with cardiology the following week for further recommendations. Please watch for signs of bleeding/bruising associated with being on a blood thinner. Avoid taking NSAIDs such as Advil, Aleve or ibuprofen. If needed take Tylenol for pain. Print Language: [place] Disposition Disposition: Home, Self Care Discharge Date/Time: 06/27/25 14:32
--- NOTE | 2025-06-27 11:00 | EKG12_ITS ---
Test Reason : RHYTHMN CHANGE
[2025-06-27 11:02] LABS: Hematocrit 51.0 % (40-54); Hemoglobin 17.3 g/dL (13.0-16.5); Immature Granulocytes Count 0.090 X10^3/uL (0.0-0.0); Mean Corp Hgb Conc 33.9 g/dL (32-36); Mean Corpuscular Volume 89.5 fL (80-94); Mean Platelet Vol. 10.7 fl (6.2-12.0); NRBC Flagged by Analyzer 0 % (0-5); Platelet Count 210 K/mm3 (150-450); RBC Distribution Width CV 13.4 % (11.6-14.6); RBC Distribution Width SD 43.8 fl (35.1-43.9); Red Blood Count 5.70 M/mm3 (4.6-6.2); White Blood Count 10.4 K/mm3 (4.4-11.0)
[2025-06-27] MEDS: 0.9% Normal Saline (1000mL) 1,000 ML 150 ML IV (11:07)
[2025-06-27 11:09] VITALS: BP 136/101; PULSE 81; RESP 18; O2SAT 96
[2025-06-27 11:16] LABS: Partial Thromboplast Time 24.6 Seconds (24.1-36.2); Prothrombin Time (Protime)PT. 15.8 SECONDS (11.7-14.9)
[2025-06-27 11:42] VITALS: BP 123/94; PULSE 67; RESP 12; O2SAT 98
[2025-06-27 12:03] LABS: Anion Gap 10 (5-15); BUN 19 mg/dL (4-19); BUN/Creat Ratio 20.0 RATIO (10-20); Calcium,Total 9.7 mg/dL (7.6-11.0); Carbon Dioxide 24.6 mmol/L (21.0-32.0); Chloride 105 mmol/L (98-108); Estimated Creatinine Clearance 121.32 ml/min (50-250); Glucose 156 mg/dL (70-99); Magnesium 2.2 mg/dL (1.5-2.2); Potassium 3.8 mmol/L (3.3-5.1); Troponin T High Sensitivity 10 ng/L (<=22)
[2025-06-27 12:27] VITALS: BP 104/81; PULSE 88; RESP 19; TEMP 36.6; O2SAT 96
[2025-06-27 13:31] LABS: Troponin T High Sens 2 HR 10 ng/L (<=22)
[2025-06-27 14:31] VITALS: BP 135/78; PULSE 64; RESP 18; TEMP 37.1; O2SAT 99
== END 2025-06-27 14:32 | disposition home or self-care (01) ==
PROVIDERS: Emergency Provider Emergency Medicine; PCP Internal Medicine; Visit Provider Emergency Medicine
DX: I48.91 Unspecified atrial fibrillation (principal); I10 Essential (primary) hypertension; F17.210 Nicotine dependence, cigarettes, uncomplicated; Z95.2 Presence of prosthetic heart valve; Z79.899 Other long term (current) drug therapy
CPT/HCPCS: 71046; 80048; 83735; 84443; 84484; 85025; 85610; 85730; 93005; 96361; 96374; 99285; A4216

== ENCOUNTER → 2025-06-30 | Outpatient (CLI) | payer OTHER, SELFPAY ==
--- NOTE | 2025-06-30 08:12 | ECHOCS_ITS ---
Reason For Study ECHO/Echo Complete W/ Contrast
== END | disposition home or self-care (01) ==
PROVIDERS: PCP Internal Medicine; Referring Provider Physician Assistant Medical; Visit Provider Physician Assistant Medical
DX: Z95.3 Presence of xenogenic heart valve (principal)
CPT/HCPCS: 93306; Q9957; A4216; C8929